=== PATIENT | male | born 1955 | race Caucasian/White ===

== ENCOUNTER 2016-12-30 12:04 | Emergency (ER) | payer SELFPAY ==
[~2016-12-30] VITALS: Ht 175.3 cm; Wt 117.9 kg
[2016-12-30] MEDS ORDERED: ASPIR-LOW81 MG PO (12:14)
[2016-12-30] MEDS ORDERED: ZOFRAN ODT4 MG PO (16:54)
[2016-12-30] MEDS ORDERED: FLOMAX0.4 MG PO (16:54)
[2016-12-30] MEDS ORDERED: NORCO 5-325 TA1 EACH PO (16:54)
== END 2016-12-30 12:18 | disposition home or self-care (01) ==
LOC: ED 12:04
DX: Z00.8 Encounter for other general examination (principal)

== ENCOUNTER 2016-12-30 14:06 | Emergency (ER) | payer OTHER ==
[~2016-12-30] VITALS: Ht 175.3 cm; Wt 117.9 kg
[~2016-12-30 14:06] MED LIST: ASPIR-LOW81 MG PO
[2016-12-30] MEDS ORDERED: ZOFRAN ODT4 MG PO (16:54)
[2016-12-30] MEDS ORDERED: NORCO 5-325 TA1 EACH PO (16:54)
[2016-12-30] MEDS ORDERED: FLOMAX0.4 MG PO (16:54)
== END 2016-12-30 17:10 | disposition home or self-care (01) ==
LOC: ED 14:06
DX: N13.2 Hydronephrosis with renal and ureteral calculous obstruction (principal); I10 Essential (primary) hypertension; Z90.49 Acquired absence of other specified parts of digestive tract; Z79.82 Long term (current) use of aspirin
CPT/HCPCS: 74176; 80053; 85025; 96374; 99284; J1170; J1885; J2405; J7030